=== PATIENT | female | born 2000 | race Caucasian/White ===

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

== ENCOUNTER 2020-01-15 12:13 | Emergency (ER) | payer SELFPAY ==
[2020-01-15] MEDS ORDERED: Acetaminophen 500 MG Tab PO ONE (12:36)
--- NOTE | 2020-01-15 13:06 | EDM.PDOC ---
ED HPI GENERAL MEDICAL PROBLEM - General Chief Complaint: Lower Extremity Injury/Pain Stated Complaint: SPRAINED ANKLE Time Seen by Provider: 01/15/20 12:14 Source of Information: Reports: Patient History Limitations: Reports: No Limitations - History of Present Illness INITIAL COMMENTS - FREE TEXT/NARRATIVE: This is a 19-year-old female with no past medical history presenting with a right ankle injury. She states that last night, she was running around the house playing with a friend when she tried to jump over a sofa and then landed and twisted her right ankle. Since then she has had pain and swelling to the lateral malleolus of the right ankle. She is unable to bear weight due to pain. She took some Advil at home prior to arrival. No other complaints. Past medical history: Reviewed, no additional pertinent history. Surgical history: Reviewed in system, no additional pertinent history. Social history: Reviewed in system, no additional pertinent history. Family history: Reviewed in system, no additional pertinent history. PHYSICAL EXAM Vital signs reviewed. Nursing notes reviewed. Constitutional: Awake, alert, non-distressed. Head: Normocephalic, atraumatic. Eyes: EOMI, conjunctiva normal, no discharge, no scleral icterus. Ears, Nose, Throat: External ears and nose normal, moist oral mucosa. Cardiovascular: 2+ right DP pulse, capillary refill less than 2 seconds. Pulmonary: normal work of breathing, no accessory muscle use. Abdomen/GI: Soft, nontender, nondistended, no guarding or rigidity, no masses. Musculoskeletal: Swelling and tenderness to the right lateral malleolus. Integumentary: Appropriate color for ethnicity, warm, dry, no pallor or jaundice, no rash. Neurologic: Alert, answering questions appropriately, normal speech, no facial droop, moving all extremities well. Sensation intact light touch to the right lower extremity Psychiatric: Appropriate mood and affect, normal thought process. right ankle Pain Score (Numeric/FACES): 7 - Related Data Allergies Allergy/AdvReac Type Severity Reaction Status Date / Time promethazine Allergy Swelling Verified 01/15/20 12:23 Sulfa (Sulfonamide Allergy Swelling Verified 01/15/20 12:23 Antibiotics) Home Meds: Home Meds . [No Known Home Meds] 12/01/18 [History] Past Medical History HEENT History: Reports: None Cardiovascular History: Reports: None Respiratory History: Reports: None Gastrointestinal History: Reports: None Genitourinary History: Reports: None GALVANIZER ZINC History: Reports: Musculoskeletal History: Reports: None Neurological History: Reports: None Psychiatric History: Reports: None Endocrine/Metabolic History: Reports: None Insulin Pump Model and Post Acute Care Nurse: N/A Hematologic History: Reports: None Immunologic History: Reports: None Oncologic (Cancer) History: Reports: None Dermatologic History: Reports: None - Infectious Disease History Infectious Disease History: Reports: None - Past Surgical History Head Surgeries/Procedures: Reports: None HEENT Surgical History: Reports: Tonsillectomy GI Surgical History: Reports: Appendectomy Female Surgical History: Reports: None Social & Family History - Family History Family Medical History: Noncontributory - Tobacco Use Tobacco Use Status *Q: Current Every Day Tobacco User Years of Tobacco use: 4 Packs/Tins Daily: 0.1 - Caffeine Use Caffeine Use: Reports: Energy Drinks - Recreational Drug Use Recreational Drug Use: No Review of Systems - Review of Systems Review Of Systems: See Below ED EXAM, GENERAL - Physical Exam Exam: See Below Course - Vital Signs Text/Narrative:: Patient hemodynamically stable, afebrile, well-appearing, looks nontoxic. Differential diagnosis includes but is not limited to: Sprain, fracture, dislocation, soft tissue injury, etc. Neurovascularly intact. X-rays interpreted by me. No fracture or dislocation, normal alignment, no foreign bodies. Presentation consistent with a right ankle sprain. Will be placed in a removable splint and given crutches. Instructions for ice, [id number] Tylenol Motrin, follow-up with primary care. Plan: Patient is stable to discharge home with outpatient primary care clinic follow-up. Strict emergency department return precautions were provided, carson mota indicated understanding. All questions were answered prior to departure. Discharged in good condition. Last Recorded V/S: Last Vital Signs Temp 36.2 C 01/15/20 12:20 Pulse 115 H 01/15/20 12:20 Resp 18 01/15/20 12:20 BP 99/75 01/15/20 12:20 Pulse Ox 97 01/15/20 12:20 - Orders/Labs/Meds Orders: Active Orders 24 hr Category Date Time Status Ankle Min 3V Rt [CR] Stat Exams 01/15/20 12:37 Ordered DME for Discharge [COMM] Stat Oth 01/15/20 13:18 Ordered DME for Discharge [COMM] Stat Oth 01/15/20 13:20 Ordered Meds: Medications Discontinued Medications Generic Name Dose Route Start Last Admin Trade Name Bryson PRN Reason Stop Dose Admin Acetaminophen 1,000 mg 01/15/20 12:36 01/15/20 12:46 Tylenol Extra Strength PO 01/15/20 12:37 1,000 mg ONETIME ONE Administration Departure - Departure Time of Disposition: 13:18 Disposition: Home, Self-Care 01 Condition: Good Clinical Impression: Sprain of right ankle Qualifiers: Encounter type: initial encounter Involved ligament of ankle: unspecified ligament Qualified Code(s): S93.401A - Sprain of unspecified ligament of right ankle, initial encounter - Discharge Information Instructions: How to Use a Stirrup Ankle Brace, [id number], How to Use Cold Therapy, [id number], Ankle Sprain Referrals: [facility] - [facility] [Provider Group] - 1 Week (For follow-up, as needed.) Forms: ED Department Discharge Additional Instructions: You were seen in the emergency department for a right ankle injury. X-rays do not demonstrate a broken bone or dislocation. It looks like you sprained your ankle. We are going to place you in a removable splint and give you crutches. I recommend [id number] extra strength acetaminophen (1000 mg every 6 hours) and ibuprofen (400 mg every 6 hours) to help treat your pain. Please follow-up with a primary medical clinic in the next 1 to 2 weeks for reevaluation if you are not doing better. Please return the emergency department immediately if your symptoms worsen or if you feel worse. Thank you for choosing the [facility] emergency department in [place] for your medical needs today. It was a pleasure caring for you. The following information is given to patients seen in the emergency department who are being discharged. This information is to outline your options for follow-up care. We provide all patients seen in our emergency department with a follow-up referral. The need for follow-up, as well as the timing and circumstances, are variable depending upon the specifics of your emergency department visit. If you don't have a primary care physician on staff, we will provide you with a referral. We always advise you to contact your personal physician following an emergency department visit to inform them of the circumstance of the visit and for follow-up with them and/or the need for any referrals to a consulting specialist. The emergency department will also refer you to a specialist when appropriate. This referral assures that you have the opportunity for follow-up care with a specialist. All of these measure are taken in an effort to provide you with optimal care, which includes your follow-up. Under all circumstances we always encourage you to contact your private physician who remains a resource for coordinating your care. When calling for follow-up care, please make the office aware that this follow-up is from your recent emergency room visit. If for any reason you are refused follow-up, please contact the [facility] Emergency Department at and asked to speak to the emergency department charge nurse. If you do not have a primary care physician that is caring for you, you can contact these clinics below to set up an appointment to establish care: [facility] - Primary Care [address] [place] [id number] [address] Sepsis Event Note (ED) - Evaluation Sepsis Screening Result: No Definite Risk - Focused Exam Vital Signs: Vital Signs Temp Pulse Resp BP Pulse Ox 01/15/20 12:20 36.2 C 115 H 18 99/75 97 - My Orders Last 24 Hours: My Active Orders 01/15/20 12:37 Ankle Min 3V Rt [CR] Stat 01/15/20 13:18 DME for Discharge [COMM] Stat 01/15/20 13:20 DME for Discharge [COMM] Stat - Assessment/Plan Last 24 Hours: My Active Orders 01/15/20 12:37 Ankle Min 3V Rt [CR] Stat 01/15/20 13:18 DME for Discharge [COMM] Stat 01/15/20 13:20 DME for Discharge [COMM] Stat
--- NOTE | 2020-01-15 13:38 | CR ---
Indication: Twisted ankle. Pain lateral side Technique: A total of three views of the right ankle were acquired. Comparison: None Findings: Bones: Alignment is normal. No fractures or bone lesions. Joint spaces: Unremarkable. Soft tissues: Mild soft tissue swelling Impression: No fracture, dislocation or destructive process. Dictated by Yousuf Olmedo MD @ Jan 15 2020 1:36PM Signed by Dr. Yousuf Olmedo @ Jan 15 2020 1:38PM
== END 2020-01-15 13:47 | disposition home or self-care (01) ==
LOC: MW.ED 12:13
DX: S93.401A Sprain of unspecified ligament of right ankle, initial encounter (principal); F17.210 Nicotine dependence, cigarettes, uncomplicated; Z88.8 Allergy status to other drugs, medicaments and biological substances; Z88.2 Allergy status to sulfonamides; X50.1XXA Overexertion from prolonged static or awkward postures, initial encounter
CPT/HCPCS: 73610; 99283; A9270; 99282

== ENCOUNTER 2021-02-03 09:02 | Emergency (ER) | payer SELFPAY ==
--- NOTE | 2021-02-03 10:29 | EDM.PDOC ---
ED HPI GENERAL MEDICAL PROBLEM - General Chief Complaint: Abdominal Pain Stated Complaint: VIMITING BACK AND STOMACH PAIN Time Seen by Provider: 02/03/21 10:04 Source of Information: Reports: Patient History Limitations: Reports: No Limitations - History of Present Illness INITIAL COMMENTS - FREE TEXT/NARRATIVE: Presents reporting a 3-day history of stomach pain, back pain, neck pain, headache, vomiting. Denies fever, dysuria, cough, chest pain, ear or facial fullness, sore throat. She had a loose brown stool 2 days ago. She has not been keeping down oral fluids. She is sexually active and has a copper IUD. She does not drink alcohol or use drugs. She has taken ibuprofen and dayquil without palliation. She denies medical problems and takes no regular medications. Lower Abdomen Pain Score (Numeric/FACES): 10 - Related Data Allergies Allergy/AdvReac Type Severity Reaction Status Date / Time promethazine Allergy Swelling Verified 02/03/21 10:01 Sulfa (Sulfonamide Allergy Swelling Verified 02/03/21 10:01 Antibiotics) Home Meds: Home Meds Ciprofloxacin [Ciprofloxacin HCl] 500 mg PO BID #14 tab 02/03/21 [Rx] Past Medical History HEENT History: Reports: None Cardiovascular History: Reports: None Respiratory History: Reports: None Gastrointestinal History: Reports: None Genitourinary History: Reports: None [employer] History: Reports: Musculoskeletal History: Reports: None Neurological History: Reports: None Psychiatric History: Reports: None Endocrine/Metabolic History: Reports: None Insulin Pump Model and Sole Ruffer: N/A Hematologic History: Reports: None Immunologic History: Reports: None Oncologic (Cancer) History: Reports: None Dermatologic History: Reports: None - Infectious Disease History Infectious Disease History: Reports: None - Past Surgical History Head Surgeries/Procedures: Reports: None HEENT Surgical History: Reports: Tonsillectomy GI Surgical History: Reports: Appendectomy Female Surgical History: Reports: None Social & Family History - Family History Family Medical History: No Pertinent Family History - Tobacco Use Years of Tobacco use: 2 Packs/Tins Daily: 0.2 - Caffeine Use Caffeine Use: Reports: Soda - Recreational Drug Use Recreational Drug Use: No ED ROS GENERAL - Review of Systems Review Of Systems: Comprehensive ROS is negative, except as noted in HPI. ED EXAM, GI/ABD - Physical Exam Exam: See Below Exam Limited By: No Limitations General Appearance: Alert, No Apparent Distress (hypothalmic) Ears: Normal External Exam, Normal TMs Nose: Normal Inspection Throat/Mouth: Normal Inspection Head: Atraumatic, Normocephalic Neck: Normal Inspection, Supple, Full Range of Motion, Tender Lateral (bilateral posterior). No: Lymphadenopathy (L), Lymphadenopathy (R) Respiratory/Chest: No Respiratory Distress Cardiovascular: Normal Peripheral Pulses, Regular Rate, Rhythm, Tachycardia GI/Abdominal Exam: Soft, No Distention, Other (midline tenderness) Back Exam: Normal Inspection Extremities: Normal Inspection Course - Vital Signs Last Recorded V/S: Last Vital Signs Temp 36.7 C 02/03/21 09:56 Pulse 87 02/03/21 12:33 Resp 18 02/03/21 12:33 BP 116/72 02/03/21 12:33 Pulse Ox 97 02/03/21 12:33 - Orders/Labs/Meds Orders: Active Orders 24 hr Category Date Time Status COVID-19/FLU A+B [[facility]LEC] Stat Lab 02/03/21 10:29 Ordered Ciprofloxacin in D5W [Cipro in D5W 400 MG/200 ML] 400 Med 02/03/21 12:37 Ordered mg Premix Bag 1 bag IV Q12H Medication Orders Ciprofloxacin/Dextrose 400 mg/ (Premix) 200 mls @ 200 mls/hr IV Q12H ONE Stop: 02/03/21 13:36 Labs: Laboratory Tests 02/03/21 02/03/21 02/03/21 Range/Units 11:00 11:00 11:05 WBC 12.01 H (4.0-11.0) K/uL RBC 4.22 L (4.30-5.90) M/uL Hgb 12.8 (12.0-16.0) g/dL Hct 37.6 (36.0-46.0) % MCV 89.1 (80.0-98.0) fL MCH 30.3 (27.0-32.0) pg MCHC 34.0 (31.0-37.0) g/dL RDW Std Deviation 44.6 (28.0-62.0) fl RDW Coeff of Jeremy 14 (11.0-15.0) % Plt Count 164 (150-400) K/uL MPV 11.40 (7.40-12.00) fL Neut % (Auto) 83.8 H (48.0-80.0) % Lymph % (Auto) 7.5 L (16.0-40.0) % Bates % (Auto) 8.6 (0.0-15.0) % Eos % (Auto) 0.0 (0.0-7.0) % Baso % (Auto) 0.1 (0.0-1.5) % Neut # (Auto) 10.1 H (1.4-5.7) K/uL Lymph # (Auto) 0.9 (0.6-2.4) K/uL Bates # (Auto) 1.0 H (0.0-0.8) K/uL Eos # (Auto) 0.0 (0.0-0.7) K/uL Baso # (Auto) 0.0 (0.0-0.1) K/uL Nucleated RBC % 0.0 /100WBC Nucleated RBCs # 0 K/uL Sodium 135 L (136-145) mmol/L Potassium 3.1 L (3.5-5.1) mmol/L Chloride 97 L (98-107) mmol/L Carbon Dioxide 25.1 (21.0-32.0) mmol/L BUN 9 (7.0-18.0) mg/dL Creatinine 1.1 H (0.6-1.0) mg/dL Est Cr Clr Drug Dosing 67.48 mL/min Estimated GFR (MDRD) > 60.0 ml/min Glucose 133 H (74-106) mg/dL Calcium 9.2 (8.5-10.1) mg/dL Total Bilirubin 0.6 (0.2-1.0) mg/dL AST 20 (15-37) IU/L ALT 27 (14-63) IU/L Alkaline Phosphatase 86 (46-116) U/L Total Protein 7.3 (6.4-8.2) g/dL Albumin 3.0 L (3.4-5.0) g/dL Globulin 4.3 H (2.6-4.0) g/dL Albumin/Globulin Ratio 0.7 L (0.9-1.6) Lipase 27 L (73-393) U/L Urine Color YELLOW Urine Appearance CLOUDY Urine pH 6.0 (5.0-8.0) Ur Specific [place] 1.020 (1.001-1.035) Urine Protein 100 H (NEGATIVE) mg/dL Urine Glucose (UA) NEGATIVE (NEGATIVE) mg/dL Urine Ketones 40 H (NEGATIVE) mg/dL Urine Occult Blood LARGE H (NEGATIVE) Urine Nitrite NEGATIVE (NEGATIVE) Urine Bilirubin NEGATIVE (NEGATIVE) Urine Urobilinogen >=8.0 H (<2.0) EU/dL Ur Leukocyte Esterase SMALL H (NEGATIVE) Urine RBC 60-80 (0-2/HPF) Urine WBC 15-20 (0-5/HPF) Ur Epithelial Cells FEW (NONE-FEW) Urine Bacteria RARE (NEGATIVE) Meds: Medications Generic Name Dose Route Start Last Admin Trade Name Freq PRN Reason Stop Dose Admin Ciprofloxacin/Dextrose 400 mg/ 200 mls @ 200 mls/hr 02/03/21 12:37 Premix IV 02/03/21 13:36 Q12H ONE Discontinued Medications Generic Name Dose Route Start Last Admin Trade Name Freq PRN Reason Stop Dose Admin Fentanyl 50 mcg 02/03/21 12:33 Fentanyl 50 Mcg/Ml Sdv IVPUSH 02/03/21 12:34 ONETIME ONE Sodium Chloride 1,000 mls @ 999 mls/hr 02/03/21 10:34 02/03/21 10:56 Normal Saline IV 02/03/21 11:34 999 mls/hr STAT ONE Administration Ondansetron HCl 4 mg 02/03/21 10:34 02/03/21 10:56 Ondansetron 4 Mg/2 Ml Sdv IVPUSH 02/03/21 10:35 4 mg ONETIME ONE Administration Departure - Departure Time of Disposition: 12:45 Disposition: Home, Self-Care 01 Condition: Good Clinical Impression: Pyelonephritis - Discharge Information Referrals: PCP,None [Primary Care Provider] - [facility] [Outside] Forms: ED Department Discharge Additional Instructions: The following information is given to patients seen in the emergency department who are being discharged to home. This information is to outline your options for follow-up care. We provide all patients seen in our emergency department with a follow-up referral. The need for follow-up, as well as the timing and circumstances, are variable depending upon the specifics of your emergency department visit. If you don't have a primary care physician on staff, we will provide you with a referral. We always advise you to contact your personal physician following an emergency department visit to inform them of the circumstance of the visit and for follow-up with them and/or the need for any referrals to a consulting specialist. The emergency department will also refer you to a specialist when appropriate. This referral assures that you have the opportunity for follow-up care with a specialist. All of these measure are taken in an effort to provide you with optimal care, which includes your follow-up. Under all circumstances we always encourage you to contact your private physician who remains a resource for coordinating your care. When calling for follow-up care, please make the office aware that this follow-up is from your recent emergency room visit. If for any reason you are refused follow-up, please contact the [facility] Emergency Department at and asked to speak to the emergency department charge nurse. 1. Drink plenty of fluids and rest 2. Take your antibiotic twice daily starting this evening 3. Follow-up in primary care 4. Return promptly for fevers, worsening back pain, elevated heart rate. Sepsis Event Note (ED) - Evaluation Sepsis Screening Result: No Definite Risk - Focused Exam Vital Signs: Vital Signs Temp Pulse Resp BP Pulse Ox 02/03/21 12:33 87 18 116/72 97 02/03/21 09:56 36.7 C 117 H 16 103/63 96 - My Orders Last 24 Hours: My Active Orders 02/03/21 10:29 COVID-19/FLU A+B [MOLEC] Stat 02/03/21 12:37 Ciprofloxacin in D5W [Cipro in D5W 400 MG/200 ML] 400 mg Premix Bag 1 bag IV Q12H - Assessment/Plan Last 24 Hours: My Active Orders 02/03/21 10:29 COVID-19/FLU A+B [MOLEC] Stat 02/03/21 12:37 Ciprofloxacin in D5W [Cipro in D5W 400 MG/200 ML] 400 mg Premix Bag 1 bag IV Q12H
[2021-02-03] MEDS ORDERED: Ondansetron 4 MG/2 ML SDV IVPUSH ONE (10:34)
[2021-02-03] MEDS ORDERED: Sodium Chloride 0.9% 1,000 ML IV ONE ×2 (10:34→12:42)
--- NOTE | 2021-02-03 11:34 | CT ---
INDICATION: Abdominal pain; midback pain. COMPARISON: CT abdomen and pelvis with intravenous contrast December 01, 2018. TECHNIQUE: CT abdomen and pelvis without intravenous contrast; coronal and sagittal reformats. FINDINGS: No abnormal intra pulmonary nodular densities through the lung bases. No evidence of pleural effusion. Normal size cardiac silhouette without any evidence of pericardial effusion. No focal hepatic or splenic pathology. No pancreatic pathology. Gallbladder is unremarkable. Enlargement of the right kidney when compared to the left with perinephric stranding on the right; rule out acute pyelonephritis. No kidney stones. Prominent renal collecting system on the right without any obstructive etiology. No retroperitoneal lymphadenopathy. Status post appendectomy. Intrauterine contraceptive device in place. Small amount of free fluid identified within the pelvic peritoneal cavity. No pneumoperitoneum or intestinal obstruction. IMPRESSION: 1. Enlargement of the right kidney with perinephric stranding; rule out acute pyelonephritis; suggest obtaining a CT of the abdomen and pelvis with intravenous contrast for further assessment. 2. No kidney stones. 3. Status post appendectomy. 4. Free fluid pelvic peritoneal cavity. 5. Intrauterine contraceptive device in place. Please note that all CT scans at this facility use dose modulation, iterative reconstruction, and/or weight-based dosing when appropriate to reduce radiation dose to as low as reasonably achievable. Dictated by Ge Hussein MD @ 02/03/2021 11:32:30 AM (Electronically Signed)
[2021-02-03 11:47] LABS: BLOOD UREA NITROGEN,BUN 9 mg/dL (7.0-18.0); CARBON DIOXIDE,CO2 25.1 mmol/L (21.0-32.0); CHLORIDE,CL 97 mmol/L (98-107); GLUCOSE RANDOM 133 mg/dL (74-106); LIPASE 27 U/L (73-393); POTASSIUM,K 3.1 mmol/L (3.5-5.1); SODIUM,NA 135 mmol/L (136-145)
[2021-02-03] MEDS ORDERED: fentaNYL 50 MCG/ML SDV IVPUSH ONE (12:33)
[2021-02-03] MEDS ORDERED: Ciprofloxacin in D5W 400 MG in Premix Bag 1 BAG IV ONE ×2 (12:37)
== END 2021-02-03 14:04 | disposition home or self-care (01) ==
LOC: MW.ED 09:02
DX: N12 Tubulo-interstitial nephritis, not specified as acute or chronic (principal); Z88.2 Allergy status to sulfonamides; Z88.8 Allergy status to other drugs, medicaments and biological substances; Z72.0 Tobacco use
CPT/HCPCS: 74176; 80053; 81001; 83690; 85025; 96361; 96365; 96375; 99284; J0744; J2405; J3010; J7030

== ENCOUNTER 2022-02-08 03:26 | Inpatient (IN) | payer MEDICAID ==
[2022-02-08] MEDS ORDERED: Methylergonovine 0.2 MG/1 ML Amp IM PRN (08:32)
[2022-02-08] MEDS ORDERED: Ondansetron 4 MG/2 ML SDV IVPUSH PRN (08:32)
[2022-02-08] MEDS ORDERED: Tranexamic Acid 1,000 MG in Sodium Chloride 0.9% 100 ML IV PRN (08:32)
[2022-02-08] MEDS ORDERED: Lidocaine 1% 50 ML MDV INJECT PRN (08:32)
[2022-02-08] MEDS ORDERED: Sodium Chloride 0.9% 20 ML SDV IV PRN (08:32)
[2022-02-08] MEDS ORDERED: Misoprostol 200 MCG Tab PO PRN (08:32)
[2022-02-08] MEDS ORDERED: Sodium Chloride 0.9% 10 ML Syringe FLUSH PRN (08:32)
[2022-02-08] MEDS ORDERED: Carboprost Tromethamine 250 MCG/1 ML Amp IM PRN (08:32)
[2022-02-08] MEDS ORDERED: Water For Irrigation,Sterile 1,000 ML Container IRR PRN (08:32)
[2022-02-08] MEDS ORDERED: Butorphanol 1 MG/ML SDV IVPUSH PRN (08:32)
[2022-02-08] MEDS ORDERED: Sodium Chloride 0.9% 2.5 ML Syringe FLUSH PRN (08:32)
[2022-02-08] MEDS ORDERED: Oxytocin/0.9 % Sodium Chloride 30 UNIT/500 ML BAG IV SCH ×2 (08:45→20:30)
[2022-02-08] MEDS: Lactated Ringers 1,000 ML IV SCH ×2 (11:00→21:04)
[2022-02-08] MEDS ORDERED: Ropivacaine/PF 400 MG/200 ML PCA ONE (11:53)
[2022-02-08] MEDS ORDERED: ePHEDrine 50 MG/ML SDV IVPUSH PRN (12:04)
[2022-02-08] MEDS ORDERED: Phenylephrine HCl In 0.9% NaCl 1 MG/10 ML Vial IVPUSH SCH (12:15)
[2022-02-08] MEDS ORDERED: Ropivacaine HCl/PF 400 MG in Premix Bag 1 BAG EPIDUR SCH (12:15)
[2022-02-08] MEDS ORDERED: Terbutaline 1 MG/ML SDV SUBCUT PRN (20:23)
[2022-02-08] MEDS ORDERED: Witch Hazel Medicated Pads 40/Jar TOP PRN (22:37)
[2022-02-08] MEDS ORDERED: Ibuprofen 400 MG Tab PO PRN (22:37)
[2022-02-08] MEDS ORDERED: Acetaminophen 500 MG Tab PO PRN (22:37)
[2022-02-08] MEDS ORDERED: Bisacodyl 10 MG Supp RECTAL PRN (22:37)
[2022-02-08] MEDS ORDERED: Docusate Sodium 100 MG Cap PO PRN (22:37)
[2022-02-08] MEDS ORDERED: Benzocaine/Menthol 20%-0.5% Spray 78 GM Cannister TOP PRN (22:37)
[2022-02-08] MEDS ORDERED: Lanolin 100% Cream 7 GM Tube TOP PRN (22:37)
[2022-02-09] MEDS: Ibuprofen 800 MG Tab PO PRN ×2 (02:48→08:54)
[2022-02-09] MEDS: Acetaminophen 500 MG Tab PO PRN ×2 (05:09→18:45)
[2022-02-09] MEDS ORDERED: Dexamethasone 4 MG/ML SDV IVPUSH ONE (16:54)
== END 2022-02-10 10:49 | disposition home or self-care (01) | DRG 807 ==
LOC: MW.OBCHECK 03:26 → MW.OB 03:27 → MW.OBCHECK 08:30 → MW.OB 08:32 → OBSVTOIN 22:23 → MW.OB 02-09 02:40
PROVIDERS: ADMIT Obstetrics & Gynecology; ATTEND Obstetrics & Gynecology Obstetrics
PROC: 10E0XZZ Delivery of Products of Conception, External Approach (ICD-10-PCS; principal; 2022-02-08)
PROC: 3E0R3BZ Introduction of Anesthetic Agent into Spinal Canal, Percutaneous Approach (ICD-10-PCS; 2022-02-08)
PROC: 00HU33Z Insertion of Infusion Device into Spinal Canal, Percutaneous Approach (ICD-10-PCS; 2022-02-08)
PROC: 10907ZC Drainage of Amniotic Fluid, Therapeutic from Products of Conception, Via Natural or Artificial Opening (ICD-10-PCS; 2022-02-08)
DX: O36.0130 Maternal care for anti-D [Rh] antibodies, third trimester, not applicable or unspecified (principal); Z37.0 Single live birth; O26.893 Other specified pregnancy related conditions, third trimester; Z67.41 Type O blood, Rh negative; Z3A.38 38 weeks gestation of pregnancy; O99.334 Smoking (tobacco) complicating childbirth; F17.210 Nicotine dependence, cigarettes, uncomplicated; O69.81X0 Labor and delivery complicated by cord around neck, without compression, not applicable or unspecified; Z20.822 Contact with and (suspected) exposure to COVID-19
CPT/HCPCS: 01967; 36415; 51702; 59025; 85014; 85018; 85027; 85460; 86592; 86850; 86870; 86900; 86901; A9270-GY; J0595; J1100; J2590; J2790; J2795; J7120; U0002

== ENCOUNTER 2022-05-11 08:23 | Emergency (ER) | payer MEDICAID ==
[2022-05-11] MEDS ORDERED: Ibuprofen 600 MG Tab PO ONE (08:38)
[2022-05-11 09:31] LABS: CORONAVIRUS COVID-19 NAA NEGATIVE (NEGATIVE); INFLUENZA A NAA NEGATIVE (NEGATIVE); INFLUENZA B NAA NEGATIVE (NEGATIVE)
== END 2022-05-11 11:21 | disposition home or self-care (01) ==
LOC: MW.ED 08:23
DX: N12 Tubulo-interstitial nephritis, not specified as acute or chronic (principal); Z20.822 Contact with and (suspected) exposure to COVID-19; Z88.2 Allergy status to sulfonamides; Z88.8 Allergy status to other drugs, medicaments and biological substances
CPT/HCPCS: 0240U; 81001; 99284; A9270; 99283

== ENCOUNTER 2023-01-24 07:48 | Emergency (ER) | payer MEDICAID | END 2023-01-24 08:31 | disposition home or self-care (01) | LOC: MW.ED 07:48 | DX: K12.2 Cellulitis and abscess of mouth (principal); M79.81 Nontraumatic hematoma of soft tissue; Z88.8 Allergy status to other drugs, medicaments and biological substances; Z88.2 Allergy status to sulfonamides | CPT/HCPCS: 99282; 99283 ==

== ENCOUNTER 2023-03-04 08:13 | Emergency (ER) | payer BC, MEDICAID ==
[2023-03-04] MEDS ORDERED: Ondansetron 4 MG Tab.DIS PO ONE (08:15)
[2023-03-04 08:27] LABS: APPEARANCE,URINE CLEAR; BILIRUBIN,URINE NEGATIVE (NEGATIVE); COLOR,URINE YELLOW; GLUCOSE,URINE NEGATIVE (NEGATIVE); KETONES,URINE NEGATIVE (NEGATIVE); LEUKOCYTE ESTERASE,URINE TRACE (NEGATIVE); NITRITE,URINE NEGATIVE (NEGATIVE); OCCULT BLOOD,URINE NEGATIVE (NEGATIVE); PROTEIN,URINE NEGATIVE (NEGATIVE); UROBILINOGEN,URINE 0.2 EU/dL (<2.0)
[2023-03-04] MEDS ORDERED: Acetaminophen 500 MG Tab PO ONE (08:30)
[2023-03-04] MEDS ORDERED: Sodium Chloride 0.9% 1,000 ML IV ONE (08:30)
[2023-03-04] MEDS ORDERED: Ketorolac 30 MG/ML SDV IVPUSH ONE (08:30)
[2023-03-04 08:41] LABS: RBC,URINE 0-3 (0-2/HPF)
[2023-03-04 08:42] LABS: BACTERIA,URINE FEW (NEGATIVE)
[2023-03-04 09:12] LABS: BASOPHILS ABSOLUTE AUTO 0.02 K/uL (0.00-0.20); BASOPHILS PERCENT AUTO 0.4 % (0.0-1.0); EOSINOPHILS ABSOLUTE AUTO 0.03 K/uL (0.00-0.45); EOSINOPHILS PERCENT AUTO 0.5 % (0.0-6.0); HEMATOCRIT 36.7 % (37.0-47.0); HEMOGLOBIN 12.9 g/dL (12.0-16.0); IMMATURE GRAN ABSOLUTE AUTO 0.01 K/uL (0.00-0.05); IMMATURE GRAN PERCENT AUTO 0.2 % (0.0-0.4); LYMPHOCYTES ABSOLUTE AUTO 0.28 K/uL (1.00-4.80); LYMPHOCYTES PERCENT AUTO 4.9 % (24.0-44.0); MEAN CORPUSCULAR HEMOGLOBIN 31.4 pg (28.0-32.0); MEAN CORPUSCULAR HGB CONC 35.1 g/dL (32.0-36.0); MEAN CORPUSCULAR VOLUME 89.3 fL (83.0-99.0); MONOCYTES ABSOLUTE AUTO 0.24 K/uL (0.00-0.80); MONOCYTES PERCENT AUTO 4.2 % (0.0-8.0); NEUTROPHILS ABSOLUTE AUTO 5.12 K/uL (1.80-7.70); NEUTROPHILS PERCENT AUTO 89.8 % (41.0-71.0); PLATELET COUNT,PLT 133 K/uL (150-400); RED BLOOD CELL COUNT 4.11 M/uL (4.10-5.30)
[2023-03-04 09:38] LABS: CORONAVIRUS COVID-19 NAA POSITIVE (NEGATIVE); INFLUENZA A NAA NEGATIVE (NEGATIVE); INFLUENZA B NAA NEGATIVE (NEGATIVE)
[2023-03-04 09:43] LABS: A/G RATIO 1.5 (0.9-1.6); ALBUMIN 4.1 g/dL (3.4-5.0); BILIRUBIN TOTAL 0.6 mg/dL (0.2-1.0); CALCIUM 8.9 mg/dL (8.5-10.1); CREATININE 0.8 mg/dL (0.6-1.0); EST CRCL DRUG DOSING (CG) 89.28 mL/min; MAGNESIUM 1.7 mg/dL (1.8-2.4); POTASSIUM,K 3.1 mmol/L (3.5-5.1); PROTEIN TOTAL,TP 6.8 g/dL (6.4-8.2)
== END 2023-03-04 10:18 | disposition home or self-care (01) ==
LOC: MW.ED 08:13
DX: U07.1 COVID-19 (principal); N39.0 Urinary tract infection, site not specified; Z88.8 Allergy status to other drugs, medicaments and biological substances; Z88.2 Allergy status to sulfonamides; Z79.899 Other long term (current) drug therapy; Z90.49 Acquired absence of other specified parts of digestive tract
CPT/HCPCS: 0240U; 36415; 80053; 81001; 81025; 83605; 83690; 83735; 85025; 87040; 96361; 96374; 99284; A9270; J1885; J7030

== ENCOUNTER 2024-03-29 00:35 | Emergency (ER) | payer SELFPAY ==
[2024-03-29] MEDS: Ondansetron 4 MG Tab.DIS PO PRN (01:35)
== END 2024-03-29 02:35 | disposition home or self-care (01) ==
LOC: MW.ED 00:35
DX: K52.9 Noninfective gastroenteritis and colitis, unspecified (principal); Z90.49 Acquired absence of other specified parts of digestive tract; F17.210 Nicotine dependence, cigarettes, uncomplicated; Z88.2 Allergy status to sulfonamides; Z88.8 Allergy status to other drugs, medicaments and biological substances
CPT/HCPCS: 81025; 99284; A9270